=== PATIENT | female | born 1970 | race Caucasian/White ===

== ENCOUNTER 2021-02-23 16:39 | Emergency (ER) | payer OTHER ==
[~2021-02-23] VITALS: Ht 170.2 cm; Wt 68.2 kg
[2021-02-23] MEDS ORDERED: dexamethasone sod phosphate 10mg/ml inj IV STA (16:54)
[2021-02-23] MEDS ORDERED: normal saline 1000ML IV soln IVB ONE (16:55)
[2021-02-23] MEDS ORDERED: LORazepam 2 mg/ml vial IV ONE (16:55)
[2021-02-23] MEDS ORDERED: metoclopramide 5 mg/ml inj IV ONE (16:55)
[2021-02-23 17:30] LABS: BASOPHILS % (AUTO) 0.5 % (0-1); EOSINOPHILS # (AUTO) 0.1 X10'3 (0-0.9); HEMATOCRIT 45.5 % (35.0-45.0); HEMOGLOBIN 15.8 g/dl (12.0-16.0); LYMPHOCYTES # (AUTO) 1.3 X10'3 (1.1-4.8); LYMPHOCYTES % (AUTO) 22.7 % (21-51); MEAN CORPUSCULAR HEMOGLOBIN 32.6 PG (27.0-31.0); MEAN CORPUSCULAR HGB CONC 34.8 g/dL (33.0-36.5); MEAN CORPUSCULAR VOLUME 93.9 FL (78-98); MONOCYTES # (AUTO) 0.3 X10'3 (0-0.9); MONOCYTES % (AUTO) 5.6 % (2-12); NEUTROPHILS % (AUTO) 69.2 % (42-75); PLATELET COUNT 262 X10'3 (140-440); RED BLOOD COUNT 4.84 X10'6 (4.20-5.60); RED CELL DISTRIBUTION WIDTH 12.9 % (11.5-14.5); WHITE BLOOD COUNT 5.8 X10'3 (4.5-11.0)
[2021-02-23 17:36] LABS: ALANINE AMINOTRANSFERASE 38 U/L (12-78); ALKALINE PHOSPHATASE 37 IU/L (46-116); ANION GAP 12 (8-16); ASPARTATE AMINO TRANSFERASE 23 U/L (10-37); BILIRUBIN,TOTAL 0.5 MG/DL (0.1-1.0); BLOOD UREA NITROGEN 16 MG/DL (7-18); BUN/CREATININE RATIO 18.4 (6.6-38.0); CALCIUM 9.1 MG/DL (8.5-10.1); CHLORIDE 105 MMOL/L (99-107); CREATININE 0.87 MG/DL (0.40-0.90); GLUCOSE 110 MG/DL (70-104); POTASSIUM 3.6 MMOL/L (3.5-5.1); SODIUM 142 MMOL/L (135-145); TOTAL CARBON DIOXIDE 25.5 MMOL/L (24-32); eGFR 69 ML/MIN
--- NOTE | 2021-02-23 18:38 | NUR ---
PT ROOMED. ASSUMED CARE OF PT.
[2021-02-23] MEDS ORDERED: ketorolac trometh. 30mg/ml inj. IV ONE (18:45)
[2021-02-23 19:40] VITALS: BP 113/72
== END 2021-02-23 19:41 | disposition home or self-care (01) ==
LOC: ER 16:40
DX: G43.909 Migraine, unspecified, not intractable, without status migrainosus (principal); Z88.2 Allergy status to sulfonamides; Z88.8 Allergy status to other drugs, medicaments and biological substances
CPT/HCPCS: 36415; 80053; 85025; 96361; 96374; 96375; 99284; J1100; J1885; J2060; J2765; J7030